=== PATIENT | female | born 1980 | race Two or more races ===

== ENCOUNTER → 2017-11-13 | Emergency (ER) | payer OTHER ==
[~2017-11-13] VITALS: Ht 149.9 cm; Wt 45.4 kg
[~2017-11-13] MED LIST: ANTIDEPRESIVO; KLONOPIN2 MG/TAB
== END | disposition left against medical advice (07) ==
LOC: ER 23:41
DX: Z53.20 Procedure and treatment not carried out because of patient's decision for unspecified reasons (principal)

== ENCOUNTER 2019-04-12 11:34 | Emergency (ER) | payer OTHER ==
[~2019-04-12] VITALS: Ht 149.9 cm; Wt 45.4 kg
[2019-04-12] MEDS ORDERED: FLUOXETINE HCL60 MG (11:53)
[2019-04-12] MEDS ORDERED: CLONAZEPAM0.5 MG (11:53)
[2019-04-12] MEDS ORDERED: PYRIDIUM100 MG PO (14:49)
[2019-04-12] MEDS ORDERED: BACTRIM DS TAB1 EACH PO (14:49)
== END 2019-04-12 16:24 | disposition home or self-care (01) ==
LOC: ER 11:34
DX: N39.0 Urinary tract infection, site not specified (principal)

== ENCOUNTER 2021-06-09 23:33 | Emergency (ER) | payer OTHER ==
[~2021-06-09] VITALS: Ht 152.4 cm; Wt 46.3 kg
[~2021-06-09 23:33] MED LIST changes: +BACTRIM DS TAB1 EACH PO; +CLONAZEPAM0.5 MG; +FLUOXETINE HCL60 MG; +PYRIDIUM100 MG PO
== END 2021-06-10 15:49 | disposition home or self-care (01) ==
LOC: ER 23:33
DX: R10.13 Epigastric pain (principal); Z33.1 Pregnant state, incidental